=== PATIENT | male | born 1970 | race Caucasian/White ===

== ENCOUNTER 2021-06-17 04:07 | Inpatient (IN) | payer BC ==
[2021-06-17] VITALS (60 sets, daily range): BP systolic 64–123; BP diastolic 31–84
[~2021-06-17] VITALS: Ht 182.9 cm; Wt 98.9 kg
[2021-06-17] MEDS ORDERED: ONDANSETRON HCL/PF 4 MG/2 ML VIAL ONE (04:17)
[2021-06-17] MEDS ORDERED: PANTOPRAZOLE 40 MG VIAL ONE (04:17)
--- NOTE | 2021-06-17 04:20 | NUR ---
PATIENT BIBRA 89 C/O SYNCOPAL EPISODES AT HOME WITH BRIGHT RED GI BLEED. PATIENT IS A/O X 4, RR EVEN AND UNLABORED, NO SOB NOTED. PATIENT CONNECTED TO CARDIAC AND POX MONITOR.
[2021-06-17] MEDS ORDERED: PANTOPRAZOLE 80 MG in IV NS 0.9% 100 ML IV ONE (04:30)
[2021-06-17] MEDS ORDERED: IV NS 0.9% 1,000 ML BAG IV ONE (04:30)
[2021-06-17] MEDS ORDERED: ONDANSETRON HCL/PF 4 MG/2 ML VIAL IVP ONE (04:30)
[2021-06-17 04:33] LABS: BASOPHILS # (AUTO) 0.1 K/uL (0.0-0.2); BASOPHILS % (AUTO) 0.6 % (0.0-2.0); EOSINOPHILS % (AUTO) 0.1 % (0.0-6.0); LYMPHOCYTES # (AUTO) 0.6 K/uL (0.8-4.8); LYMPHOCYTES % (AUTO) 5.5 % (20.0-44.0); MEAN CORPUSCULAR HGB CONC 33 g/dl (31.0-36.0); MEAN CORPUSCULAR VOLUME 109 fL (80-96); MONOCYTES # (AUTO) 1.7 K/uL (0.1-1.30); MONOCYTES % (AUTO) 14.6 % (2.0-12.0); NEUTROPHILS # (AUTO) 9.2 K/uL (1.8-8.9); NEUTROPHILS % (AUTO) 79.2 % (43.0-81.0); PLATELET COUNT (AUTO) 202 K/uL (150-450); WHITE BLOOD COUNT (AUTO) 11.7 K/uL (4.3-11.0)
[2021-06-17 04:36] LABS: RED BLOOD CELL COUNT(AUTO) 1.61 MIL/uL (4.5-6.0)
[2021-06-17 04:37] LABS: HEMOGLOBIN 5.8 g/dL (13.5-17.5)
[2021-06-17 04:38] LABS: HEMATOCRIT 18 % (39-51)
[2021-06-17 04:48] LABS: CALCIUM, SERUM 8.1 mg/dL (8.5-10.1); CREATININE 2.1 mg/dL (0.6-1.3); POTASSIUM 3.9 mmol/L (3.5-5.1)
--- NOTE | 2021-06-17 04:53 | NUR ---
dr castellanos paged per dr mills.
[2021-06-17 04:54] LABS: ALBUMIN 2.2 g/dL (3.4-5.0); BILIRUBIN,DIRECT 2.4 mg/dL (0.0-0.2); BILIRUBIN,TOTAL 3.5 mg/dL (0.2-1.0)
--- NOTE | 2021-06-17 05:23 | NUR ---
PATIENT RETURNED FROM CT
--- NOTE | 2021-06-17 05:46 | NUR ---
REPORT GIVEN TO BROCK MICHAEL
--- NOTE | 2021-06-17 05:54 | NUR ---
PATIENT TRANSFERRED UNDER ACLS
--- NOTE | 2021-06-17 06:00 | NUR ---
RN NOTE PT BROUGHT TO UNIT VIA GURNEY FROM ER. PT IS ON ROOM AIR SHOWING NO S/S OF RESP DISTRESS. BREATHING EVEN AND UNLABORED. PT IS A/XO4. IV ACCESS NOTED ON RIGHT AC #18 AND LEFT FA #20. LINES FLUSHED, PATENT, AND INTACT WITH NO SIGNS OF INFILTRATION. ALL SAFETY MEASURES IMPLEMENTED. CALL LIGHT WITHIN REACH. BED ALARM ON. BED LOCKED AND IN LOWEST POSITION. WILL CONTINUE TO MONITOR AND ASSESS FOR ANY CHANGES AND ENDORSE TO MORNING SHIFT RN FOR ERNESTO.
[2021-06-17 06:36] LABS: LYMPHOCYTES % (MANUAL) 5 % (16-48); METAMYELOCYTES % 1 % (0-0); MONOCYTES % (MANUAL) 11 % (0-11.0); MYELOCYTES % 1 % (0-0); NEUTROPHILS % (MANUAL) 82 (42-76)
--- NOTE | 2021-06-17 06:45 | NUR ---
RN NOTE BLOOD TRANSFUSION INITIATED AT 0630. INITIAL VITAL SIGNS TAKEN. VITAL SIGNS TAKEN AGAIN AT 0645. WILL ENDORSE TO MORNING SHIFT RN FOR ERNESTO.
[2021-06-17] MEDS ORDERED: ZOLPIDEM TARTRATE 5 MG TABLET PO PRN (07:00)
[2021-06-17] MEDS ORDERED: MAGNESIUM HYDROXIDE 30 ML UDC PO PRN (07:00)
[2021-06-17] MEDS ORDERED: Z GUARD REMEDY 2 OZ OINT TP PRN (07:00)
[2021-06-17] MEDS ORDERED: MAG HYDROX/AL HYDROX/SIMETH 30 ML UDC PO PRN (07:00)
--- NOTE | 2021-06-17 07:30 | NUR ---
TD RN AM NOTE PT IN BED, AO X 4, PT IS ON ROOM AIR, NO S/S OF RESP DISTRESS. BREATHING EVEN AND UNLABORED. C/O SLIGHT DIZZINESS, DENIES OTHER PAIN, ACCESS NOTED ON RIGHT AC #18 AND LEFT FA #20. LINES FLUSHED, PATENT, AND INTACT WITH NO SIGNS OF INFILTRATION. ONGOING BLOOD TRANSFUSION TO RIGHT AC. NPO FOR NOW. NO SKIN ISSUES. FOR POSSIBLE EGD TODAY. ALL SAFETY MEASURES IMPLEMENTED. CALL LIGHT WITHIN REACH. BED ALARM ON. BED LOCKED AND IN LOWEST POSITION. WILL CONTINUE TO MONITOR AND ASSESS FOR ANY CHANGES.
[2021-06-17] MEDS ORDERED: CLON0.5T4 PO (08:29)
[2021-06-17] MEDS ORDERED: LISI10TA29 PO (08:29)
[2021-06-17] MEDS ORDERED: ANESTHESIA TRAY IN PYXIS 1 EA TRAY MC ONE (08:30)
[2021-06-17] MEDS: OCTREOTIDE 500 MCG in IV NS 0.9% 99 ML IV PRN (09:05)
[2021-06-17] MEDS: PANTOPRAZOLE 80 MG in IV NS 0.9% 500 ML IV PRN ×2 (09:06→20:01)
[2021-06-17] MEDS: IV NS 0.9% 1,000 ML IV PRN ×3 (09:19→16:29)
--- NOTE | 2021-06-17 09:26 | NUR ---
RN NOTES 1 UNIT PRBC COMPETED. NO ADVERSE REACTION NOTED. PATIENT PICKED UP FOR SCHEDULED EGD.
[2021-06-17] MEDS ORDERED: MIDAZOLAM HCL 2 MG/2ML VIAL ONE (09:37)
--- NOTE | 2021-06-17 09:45 | NUR ---
RN NOTES SANDOSTATIN DRIP AND PROTONIX IV STARTED AT SURGERY DEPT.
--- NOTE | 2021-06-17 10:25 | NUR ---
RN NOTES RECEIVED PT FROM OR , INTUBATED , S/P EGD, PT IS SEDATED , RESPONDS TO PAINFUL STIMULI, ET TUBE CARE DONE, TOLERAING VENT SETTING WELL, O2 SAT WNL, COCHRAN INSERTED PER MD ORDER, TEA COLOR URIN OUTPUT NOTED, IV SITES CLEAN DRY AND INTACT PT ON PROTONIX AND SANDOSTATIN DRIP , PT IS NPO , SR UP x3 , CALL LIGHT WITHIN EASY REACH, CONTINUE TO MONITOR .
--- NOTE | 2021-06-17 10:30 | NUR ---
RN NOTES REPORT GIVEN TO PRISCILLA. PATIENT WILL GO TO ICU 256 POST SURGERY. MEETING PLANNER GIVEN": RIC [SON] [phone]
--- NOTE | 2021-06-17 10:51 | NUR ---
RN NOTES SECOND UNIT OF PRBC STARTED, CONTINUE TO MONITOR VSS .
[2021-06-17] MEDS: PROPOFOL 100 ML IV PRN ×3 (11:41→22:21)
[2021-06-17 12:25] LABS: ABG BASE EXCESS -3.7 mmol/L; ABG PCO2 23.5 mmHg (35.0-45.0); ABG PH 7.515 (7.350-7.450); ABG PO2 139.1 mmHg (75.0-100.0); COHb 0.3 % (0.5-1.5); MetHb 0.7 % (0.0-1.5); O2Hb 97.3 % (94.0-97.0); SITE, ABG Right Radial; VT, ABG 500 mL
[2021-06-17] MEDS: CEFTRIAXONE 1 G in IV D5W 50 ML IV SCH (12:31)
[2021-06-17] MEDS ORDERED: IV NS 0.9% 1,000 ML IV ONE (13:00)
[2021-06-17] MEDS: NOREPINEPHRINE 8 MG in IV NS 0.9% 242 ML IV PRN ×2 (13:18→20:51)
--- NOTE | 2021-06-17 13:18 | NUR ---
RN NOTES PT IS HYPOTENSIVE, DR MANDY DUMONTFED, ORDER RECEIVED FOR BOLUS IVF AND TO START LEVO DRIP. CONTINUE TO MONITOR.
[2021-06-17 14:31] LABS: BASOPHILS # (AUTO) 0.1 K/uL (0.0-0.2); BASOPHILS % (AUTO) 0.8 % (0.0-2.0); EOSINOPHILS % (AUTO) 0.1 % (0.0-6.0); HEMATOCRIT 22 % (39-51); HEMOGLOBIN 7.4 g/dL (13.5-17.5); LYMPHOCYTES # (AUTO) 1.2 K/uL (0.8-4.8); LYMPHOCYTES % (AUTO) 10.7 % (20.0-44.0); MEAN CORPUSCULAR HGB CONC 35 g/dl (31.0-36.0); MEAN CORPUSCULAR VOLUME 98 fL (80-96); MONOCYTES # (AUTO) 1.8 K/uL (0.1-1.30); MONOCYTES % (AUTO) 15.9 % (2.0-12.0); NEUTROPHILS # (AUTO) 8.3 K/uL (1.8-8.9); NEUTROPHILS % (AUTO) 72.5 % (43.0-81.0); PLATELET COUNT (AUTO) 169 K/uL (150-450); RED BLOOD CELL COUNT(AUTO) 2.21 MIL/uL (4.5-6.0); WHITE BLOOD COUNT (AUTO) 11.4 K/uL (4.3-11.0)
[2021-06-17 14:44] LABS: CALCIUM, SERUM 6.7 mg/dL (8.5-10.1); CREATININE 1.8 mg/dL (0.6-1.3); POTASSIUM 3.9 mmol/L (3.5-5.1)
[2021-06-17 15:37] LABS: BAND % (MANUAL) 2 % (0.0-5.0); EOSINOPHILS % (MANUAL) 1 % (0-4); LYMPHOCYTES % (MANUAL) 9 % (16-48); MONOCYTES % (MANUAL) 4 % (0-11.0); NEUTROPHILS % (MANUAL) 84 (42-76)
--- NOTE | 2021-06-17 18:30 | NUR ---
RN NOTES PT REMAINS INTUBATED AND SEDATED, TOLERATING VENT SETTING WELL, O2 SAT WNL, NO ACTIVE BLEEDING NOTED, NS AT 125CC/HR , LEVO AT .3 MCG/KG/ MIN ,PROTONIX 50CC/HR ,AND SANDOSTATIN AT 25MCG /HR RUNNING , SR UP x3, CALL LIGHT WITHIN EASY REACH, BED LOCKED AND IN LOWEST POSITION, WILL ENDOSE TO MANUFACTURING SR ENGINEER NURSE FOR CONTINUITY OF CARE.
--- NOTE | 2021-06-17 19:30 | NUR ---
FEED MANAGER RCD PT WITH AZAR MIDLINE NO MEDICATIONS CONNECTED TO MIDLINE AT THIS TIME. FLUSHED MIDLINE AND MET RESISTANCE. CONNECTED MEDICATIONS TO EACH PORT AND ONLY PORT CAN BE USED AT A TIME.
[2021-06-18] VITALS (65 sets, daily range): BP systolic 93–116; BP diastolic 59–77
[2021-06-18] MEDS: IV NS 0.9% 1,000 ML IV PRN ×3 (00:20→17:23)
[2021-06-18] MEDS: OCTREOTIDE 500 MCG in IV NS 0.9% 99 ML IV PRN ×2 (00:45→19:06)
[2021-06-18] MEDS: PROPOFOL 100 ML IV PRN ×6 (01:45→21:09)
[2021-06-18] MEDS: NOREPINEPHRINE 8 MG in IV NS 0.9% 242 ML IV PRN ×5 (01:45→23:09)
[2021-06-18] MEDS: PANTOPRAZOLE 80 MG in IV NS 0.9% 500 ML IV PRN ×2 (05:06→15:10)
[2021-06-18 05:16] LABS: BASOPHILS # (AUTO) 0.1 K/uL (0.0-0.2); BASOPHILS % (AUTO) 0.4 % (0.0-2.0); EOSINOPHILS % (AUTO) 0.2 % (0.0-6.0); HEMATOCRIT 23 % (39-51); HEMOGLOBIN 8.1 g/dL (13.5-17.5); LYMPHOCYTES # (AUTO) 1.2 K/uL (0.8-4.8); LYMPHOCYTES % (AUTO) 8.1 % (20.0-44.0); MEAN CORPUSCULAR HGB CONC 35 g/dl (31.0-36.0); MEAN CORPUSCULAR VOLUME 99 fL (80-96); MONOCYTES # (AUTO) 2.5 K/uL (0.1-1.30); MONOCYTES % (AUTO) 16.6 % (2.0-12.0); NEUTROPHILS # (AUTO) 11.5 K/uL (1.8-8.9); NEUTROPHILS % (AUTO) 74.7 % (43.0-81.0); PLATELET COUNT (AUTO) 233 K/uL (150-450); RED BLOOD CELL COUNT(AUTO) 2.35 MIL/uL (4.5-6.0); WHITE BLOOD COUNT (AUTO) 15.3 K/uL (4.3-11.0)
[2021-06-18 05:27] LABS: CALCIUM, SERUM 6.4 mg/dL (8.5-10.1); CREATININE 2.3 mg/dL (0.6-1.3); MAGNESIUM 1.7 mg/dL (1.8-2.4); PHOSPHORUS 3.3 mg/dL (2.5-4.9); POTASSIUM 3.4 mmol/L (3.5-5.1)
--- NOTE | 2021-06-18 07:32 | NUR ---
RN NOTE PATIENT IS IN BED WITH HOB AT SEMI FOWLERS POSITION. PATIENT IS ON VENT SATURATING 98%. PATIENT IS SEDATED. COCHRAN CATHETER IS IN PLACE. AZAR MIDLINE, RAC 18, LFA 20 ARE ALL PATENT AND INTACT. BED IS LOCKED IN THE LOWEST POSITION, 3 GUARD RAILS RAISED, CALL LOVETT WITHIN REACH, AND ALL HOSPITAL SAFETY PRECAUTIONS ARE BEING FOLLOWED. WILL CONTINUE TO MONITOR THROUGHOUT SHIFT.
[2021-06-18] MEDS: POTASSIUM CL. PREMIX PERIPHER. 50 ML IV SCH ×4 (08:21→11:22)
[2021-06-18] MEDS: Magnesium 1GM/D5W 100ML PREMIX 100 ML IV SCH ×2 (08:21→09:26)
[2021-06-18 09:54] LABS: BAND % (MANUAL) 2 % (0.0-5.0); LYMPHOCYTES % (MANUAL) 7 % (16-48); METAMYELOCYTES % 1 % (0-0); MONOCYTES % (MANUAL) 7 % (0-11.0); MYELOCYTES % 1 % (0-0); NEUTROPHILS % (MANUAL) 82 (42-76)
[2021-06-18 11:01] LABS: ABG BASE EXCESS -4.6 mmol/L; ABG OXYGEN SATURATION 91.3 % (92.0-98.5); ABG PCO2 27.2 mmHg (35.0-45.0); ABG PH 7.453 (7.350-7.450); ABG PO2 64.1 mmHg (75.0-100.0); AaDO2 117.8 mmHg; COHb 0.3 % (0.5-1.5); MetHb 0.3 % (0.0-1.5); O2Hb 90.8 % (94.0-97.0); PEEP,BG 0 cm H2O; SITE, ABG Right Radial; VT, ABG 500 mL
[2021-06-18] MEDS: CEFTRIAXONE 1 G in IV D5W 50 ML IV SCH (11:22)
[2021-06-18 12:32] LABS: BASOPHILS # (AUTO) 0.1 K/uL (0.0-0.2); BASOPHILS % (AUTO) 0.6 % (0.0-2.0); EOSINOPHILS % (AUTO) 1.6 % (0.0-6.0); HEMATOCRIT 22 % (39-51); HEMOGLOBIN 7.5 g/dL (13.5-17.5); LYMPHOCYTES # (AUTO) 1.2 K/uL (0.8-4.8); LYMPHOCYTES % (AUTO) 9.7 % (20.0-44.0); MEAN CORPUSCULAR HGB CONC 34 g/dl (31.0-36.0); MEAN CORPUSCULAR VOLUME 100 fL (80-96); MONOCYTES # (AUTO) 2.5 K/uL (0.1-1.30); MONOCYTES % (AUTO) 19.5 % (2.0-12.0); NEUTROPHILS # (AUTO) 8.7 K/uL (1.8-8.9); NEUTROPHILS % (AUTO) 68.6 % (43.0-81.0); PLATELET COUNT (AUTO) 221 K/uL (150-450); RED BLOOD CELL COUNT(AUTO) 2.21 MIL/uL (4.5-6.0); WHITE BLOOD COUNT (AUTO) 12.7 K/uL (4.3-11.0)
[2021-06-18 13:13] LABS: BAND % (MANUAL) 3 % (0.0-5.0); EOSINOPHILS % (MANUAL) 2 % (0-4); LYMPHOCYTES % (MANUAL) 5 % (16-48); METAMYELOCYTES % 2 % (0-0); MONOCYTES % (MANUAL) 9 % (0-11.0); MYELOCYTES % 2 % (0-0); NEUTROPHILS % (MANUAL) 77 (42-76)
--- NOTE | 2021-06-18 18:46 | NUR ---
RN NOTE PATIENT IS IN BED WITH HOB AT SEMI FOWLERS POSITION. PATIENT IS ON VENT SATURATING 97%. PATIENT IS SEDATED. COCHRAN CATHETER IS IN PLACE. AZAR MIDLINE, RWRIST 18 X2 , LFA 20 ARE ALL PATENT AND INTACT. BED IS LOCKED IN THE LOWEST POSITION, 3 GUARD RAILS RAISED, CALL LOVETT WITHIN REACH, AND ALL HOSPITAL SAFETY PRECAUTIONS ARE BEING FOLLOWED. ALL DUE MEDS GIVEN AND PATIENT REMAINED STABLE THROUGHOUT SHIFT. WILL ENDORSE TO BOILER OPERATORS SUPERVISOR RN.
[2021-06-19] VITALS (84 sets, daily range): BP systolic 66–143; BP diastolic 41–87
[2021-06-19] MEDS: PANTOPRAZOLE 80 MG in IV NS 0.9% 500 ML IV PRN ×3 (00:42→19:09)
[2021-06-19] MEDS: PROPOFOL 100 ML IV PRN ×6 (01:04→22:58)
[2021-06-19] MEDS: IV NS 0.9% 1,000 ML IV PRN ×4 (01:05→17:32)
[2021-06-19] MEDS: NOREPINEPHRINE 8 MG in IV NS 0.9% 242 ML IV PRN ×4 (04:30→19:11)
--- NOTE | 2021-06-19 05:39 | NUR ---
CAREER DEVELOPMENT COORDINATOR VENT.SETTING REMAINS THE SAME. PT IS SEDATED WITH PROPOFOL DRIP. PT IS ALSO ON LEVOPHED DRIP /FOR HYPOTENSION/, PROTONIX & SANDOSTATIN DRIPS. VSS, AFEBRILE, SCOPE- SR. F/C DRAINS SUFFICIENT AMT. OF CLEAR URINE. PT GOT ONE PASY BROWNISH COLOR STOOL. RIGHT ARM MIDLINE IS CLOGGED. GOT ORDER FOR PICC LINE INSERTION. SOFT WRIST RESTRAINTS ON.
[2021-06-19 05:53] LABS: BASOPHILS % (AUTO) 0.3 % (0.0-2.0); EOSINOPHILS % (AUTO) 0.8 % (0.0-6.0); HEMATOCRIT 22 % (39-51); HEMOGLOBIN 7.5 g/dL (13.5-17.5); LYMPHOCYTES # (AUTO) 0.9 K/uL (0.8-4.8); LYMPHOCYTES % (AUTO) 7.9 % (20.0-44.0); MEAN CORPUSCULAR HGB CONC 34 g/dl (31.0-36.0); MEAN CORPUSCULAR VOLUME 100 fL (80-96); MONOCYTES # (AUTO) 2.5 K/uL (0.1-1.30); MONOCYTES % (AUTO) 22.5 % (2.0-12.0); NEUTROPHILS # (AUTO) 7.7 K/uL (1.8-8.9); NEUTROPHILS % (AUTO) 68.5 % (43.0-81.0); PLATELET COUNT (AUTO) 197 K/uL (150-450); RED BLOOD CELL COUNT(AUTO) 2.18 MIL/uL (4.5-6.0); WHITE BLOOD COUNT (AUTO) 11.3 K/uL (4.3-11.0)
[2021-06-19 06:07] LABS: CALCIUM, SERUM 6.6 mg/dL (8.5-10.1); CREATININE 1.2 mg/dL (0.6-1.3); MAGNESIUM 2.1 mg/dL (1.8-2.4); PHOSPHORUS 2.5 mg/dL (2.5-4.9); POTASSIUM 3.5 mmol/L (3.5-5.1)
--- NOTE | 2021-06-19 07:20 | NUR ---
RN OPENING NOTES; RECEIVED PT IN SUPINE POS. PT ON MECH VENT, WITH SETTING ORDERED. PT IS SEDATED, MULTIPLE DRIPS NOTED. RUNNING, PATENT. PT HAS A NEW ORDER FOR PICC LINE. VS WNL, NO SOB NOTED, NO EVIDENCE OF DISTRESS. PT KEPT CLEAN, DRY, AND COMFORTABLE. SAFETY MEASURES RENDERED, BED IN LOWEST POS. LOCK, WITH CALL LIGHT WITHIN REACH. WILL CONTINUE TO MONITOR.
[2021-06-19 10:38] LABS: EOSINOPHILS % (MANUAL) 2 % (0-4); LYMPHOCYTES % (MANUAL) 9 % (16-48); MONOCYTES % (MANUAL) 19 % (0-11.0); NEUTROPHILS % (MANUAL) 70 (42-76)
[2021-06-19] MEDS: OCTREOTIDE 500 MCG in IV NS 0.9% 99 ML IV PRN (11:06)
[2021-06-19] MEDS: CEFTRIAXONE 1 G in IV D5W 50 ML IV SCH (11:27)
--- NOTE | 2021-06-19 18:37 | NUR ---
RN NOTES; PT IN BED, IN SUPINE POS. PT ON MECH VENT, WITH SETTINGS ORDERED. PT HAS NO SOB NOTED, AND NO DISTRESS EVIDENCE BY FACIAL EXPRESSION. ALL MEDS GIVEN AND WELL TOLERATED. ENJOYED VISIT WITH FAMILY. UPDATED FAMILY REGARDING PT HEALTH STATUS. FAMILY WOULD LIKE TO SPEAK TO MD REGARDING PT HEALTH STATUS AND PLANS. NO SIGNIFICANT CHANGES TO PT HEALTH STATUS. PT KEPT CLEAN, DRY AND COMFORTABLE. ENDORSE TO COMPUTER APPLICATIONS ENGINEER IN STABLE CONDITION.
[2021-06-20] VITALS (64 sets, daily range): BP systolic 85–131; BP diastolic 51–79
--- NOTE | 2021-06-20 | NUR ---
agricultural inspector received the pt rest on the bed. orally intubated. sedated with propofol 50mcg/kg/min, protonix 50 ml/h, sandostatin 25mcg, levophed 0.1 mcg/kg/min, ivf ns 100ml/h. pt is npo. fc patent. urine draining. will continue to monitor vitals.
[2021-06-20] MEDS: OCTREOTIDE 500 MCG in IV NS 0.9% 99 ML IV PRN ×2 (01:59→21:31)
[2021-06-20] MEDS: NOREPINEPHRINE 8 MG in IV NS 0.9% 242 ML IV PRN (02:01)
[2021-06-20] MEDS: PROPOFOL 100 ML IV PRN ×2 (03:15→07:26)
[2021-06-20] MEDS ORDERED: PANTOPRAZOLE 40 MG VIAL ONE (03:19)
[2021-06-20] MEDS: IV NS 0.9% 1,000 ML IV PRN ×2 (03:20→14:48)
[2021-06-20] MEDS: PANTOPRAZOLE 80 MG in IV NS 0.9% 500 ML IV PRN ×3 (03:23→21:29)
[2021-06-20 04:37] LABS: BASOPHILS # (AUTO) 0.1 K/uL (0.0-0.2); EOSINOPHILS % (AUTO) 1.3 % (0.0-6.0); LYMPHOCYTES # (AUTO) 0.8 K/uL (0.8-4.8); LYMPHOCYTES % (AUTO) 9.6 % (20.0-44.0); MEAN CORPUSCULAR HGB CONC 35 g/dl (31.0-36.0); MEAN CORPUSCULAR VOLUME 102 fL (80-96); MONOCYTES # (AUTO) 2.1 K/uL (0.1-1.30); MONOCYTES % (AUTO) 24.4 % (2.0-12.0); NEUTROPHILS # (AUTO) 5.4 K/uL (1.8-8.9); NEUTROPHILS % (AUTO) 63.7 % (43.0-81.0); PLATELET COUNT (AUTO) 207 K/uL (150-450); WHITE BLOOD COUNT (AUTO) 8.4 K/uL (4.3-11.0)
[2021-06-20 04:43] LABS: CALCIUM, SERUM 6.4 mg/dL (8.5-10.1); MAGNESIUM 2.2 mg/dL (1.8-2.4); PHOSPHORUS 2.3 mg/dL (2.5-4.9); POTASSIUM 3.6 mmol/L (3.5-5.1)
[2021-06-20 05:45] LABS: HEMATOCRIT 20 % (39-51); RED BLOOD CELL COUNT(AUTO) 1.95 MIL/uL (4.5-6.0)
[2021-06-20 05:46] LABS: HEMOGLOBIN 6.9 g/dL (13.5-17.5)
--- NOTE | 2021-06-20 07:00 | NUR ---
RN NOTES RECEIVED PT ON BED INTUBATED AND SEDATED , TOLERAING VENT SETTING WELL, O2 SAT WNL, ETT CARE DONE, PT ON PROTONIX , SANDOSTATIN , LEVO AND PROPOFOL DRIP , ON TELE SR HR IN 70'S , COCHRAN DRAINING TO GRAVITY, IV SITES CLEAN DRY AND INTACT, SR UP x3, CALL LIGHT WITHIN EASY REACH, BED LOCKED AND IN LOWEST POSITION, CONTINUE TO MONITOR .
[2021-06-20 07:03] LABS: BAND % (MANUAL) 5 % (0.0-5.0); EOSINOPHILS % (MANUAL) 3 % (0-4); LYMPHOCYTES % (MANUAL) 6 % (16-48); MONOCYTES % (MANUAL) 16 % (0-11.0); NEUTROPHILS % (MANUAL) 70 (42-76)
--- NOTE | 2021-06-20 07:26 | NUR ---
agricultural consultant. hemoglobin 6.9 notified md sharpe 1 unit prbc ordered.
--- NOTE | 2021-06-20 11:00 | NUR ---
RN NOTES PT ON CPAP MODE, TOLERAING WELL , OPENS EYES TO VERBAL STIMULI, FOLLOWS SIMPLE COMMAND, CONTINUE TO MONITOR .
[2021-06-20] MEDS: CEFTRIAXONE 1 G in IV D5W 50 ML IV SCH (11:33)
[2021-06-20] MEDS: POTASSIUM PHOSPHATE MM 7.5 MMOL in IV NS 0.9% 100 ML IV SCH ×2 (11:58→14:38)
--- NOTE | 2021-06-20 14:00 | NUR ---
RN NOTES ONE UNIT OF PRBC INFUSED , PT TOLERATED WELL, NO REACTION NOTED, CONTINUE TO MONITOR
--- NOTE | 2021-06-20 17:52 | NUR ---
RN NOTES PT REMAINS ON CPAP MODE , NO DISTRESS NOTED, O2 SAT WNL, FOLY DRAINING TO GRAVITY, PT ON PROTONIX AND SANDOSTATIN DRIP, IVF AT 100CC/ HR RUNNING , WILL ENDORSE TO FOOTWEAR SALES COORDINATOR NURSE FOR CONTINUITY OF CARE.
--- NOTE | 2021-06-20 19:35 | NUR ---
RN NOTE PT RECEIVED IN BED. PT IS IN CPAP MODE. TOLERATING VENT SETTINGS WELL WITH OXYGEN SATURATION >97%. PT IS SEDATED. NSR ON MONITOR. COCHRAN CATH NOTED DRAINING YANICK COLORED URINE. SKIN INTACT. RESTRAINTS NOTED. CURRENTLY NPO. IV LINES FLUSHED, PATENT, AND INTACT WITH NO SIGNS/SYMPTOMS OF INFILTRATION. 0.9% NS RUNNING AT 100 ML/HR. ALL SAFETY MEASURES IMPLEMENTED. BED ALARM ON. BED LOCKED AND IN LOWEST POSITION. SIDE RAILS UP. WILL CONTINUE TO MONITOR AND ASSESS FOR ANY CHANGES DURING SHIFT.
[2021-06-21] VITALS (37 sets, daily range): BP systolic 100–131; BP diastolic 46–95
[2021-06-21] MEDS: IV NS 0.9% 1,000 ML IV PRN ×2 (00:43→09:48)
[2021-06-21 04:40] LABS: BASOPHILS # (AUTO) 0.1 K/uL (0.0-0.2); BASOPHILS % (AUTO) 1.2 % (0.0-2.0); EOSINOPHILS % (AUTO) 1.3 % (0.0-6.0); HEMATOCRIT 25 % (39-51); HEMOGLOBIN 8.5 g/dL (13.5-17.5); LYMPHOCYTES # (AUTO) 0.5 K/uL (0.8-4.8); LYMPHOCYTES % (AUTO) 7.6 % (20.0-44.0); MEAN CORPUSCULAR HGB CONC 34 g/dl (31.0-36.0); MEAN CORPUSCULAR VOLUME 99 fL (80-96); MONOCYTES # (AUTO) 1.3 K/uL (0.1-1.30); NEUTROPHILS # (AUTO) 4.9 K/uL (1.8-8.9); NEUTROPHILS % (AUTO) 70.9 % (43.0-81.0); PLATELET COUNT (AUTO) 166 K/uL (150-450); RED BLOOD CELL COUNT(AUTO) 2.52 MIL/uL (4.5-6.0); WHITE BLOOD COUNT (AUTO) 6.9 K/uL (4.3-11.0)
[2021-06-21 05:08] LABS: CALCIUM, SERUM 6.9 mg/dL (8.5-10.1); CREATININE 0.8 mg/dL (0.6-1.3); POTASSIUM 3.4 mmol/L (3.5-5.1)
[2021-06-21 06:26] LABS: BAND % (MANUAL) 4 % (0.0-5.0); EOSINOPHILS % (MANUAL) 3 % (0-4); LYMPHOCYTES % (MANUAL) 6 % (16-48); MONOCYTES % (MANUAL) 18 % (0-11.0); NEUTROPHILS % (MANUAL) 69 (42-76)
--- NOTE | 2021-06-21 06:44 | NUR ---
RN NOTE NO CHANGES IN PT CONDITION DURING SHIFT. PT IS IN CPAP MODE. TOLERATING VENT SETTINGS WELL WITH OXYGEN SATURATION >97%. PT IS STILL SEDATED, BUT ABLE TO ANSWER QUESTIONS BY NODDING HEAD. NSR ON MONITOR. COCHRAN CATH NOTED DRAINING YANICK COLORED URINE. IV LINES FLUSHED, PATENT, AND INTACT. 0.9% NS RUNNING AT 100 ML/HR. ALL DUE MEDS GIVEN ORDERED. PT KEPT CLEAN AND COMFORTABLE. ALL SAFETY MEASURES IMPLEMENTED. BED ALARM ON. BED LOCKED AND IN LOWEST POSITION. SIDE RAILS UP. WILL ENDORSE TO MORNING SHIFT RN FOR ERNESTO.
--- NOTE | 2021-06-21 07:00 | NUR ---
RN NOTES RECEIVED PT ON BED INTUBATED, ALERT , FOLLOWS SIMPLE COMMAND, ON CPAP MODE, TOLERAING VENT SETTING WELL, O2 SAT WNL, ETT CARE DONE, PT ON PROTONIX , SANDOSTATIN DRIP, ON TELE SR HR IN 70'S , COCHRAN DRAINING TO GRAVITY, IV SITES CLEAN DRY AND INTACT, SR UP x3, CALL LIGHT WITHIN EASY REACH, BED LOCKED AND IN LOWEST POSITION, CONTINUE TO MONITOR .
[2021-06-21] MEDS: PANTOPRAZOLE 80 MG in IV NS 0.9% 500 ML IV PRN (07:32)
[2021-06-21] MEDS ORDERED: DC PROPOFOL WHEN EXTUBATED XX PRN (09:00)
--- NOTE | 2021-06-21 09:30 | NUR ---
RN NOTES PT EXTUBATED BY MD ORDER , PLACED ON 3L O2 N/C , VSS STABLE AT THIS TIME, CONTINUE TO MONITOR .
--- NOTE | 2021-06-21 09:30 | NUR ---
RT PATIENT EXTUBATED PER DR BREWER. PLACED ON SD LINDSEY HYDE. NO SOB NOTED Addendum: 06/21/21 at 1226 by SHU PRADHAN RT Amended: Links added.
[2021-06-21] MEDS: POTASSIUM CL. PREMIX PERIPHER. 50 ML IV SCH ×3 (09:46→12:16)
--- NOTE | 2021-06-21 12:00 | NUR ---
RN NOTES FAMILY AT THE BEDSIDE, PT TOLERATING 3L O2 N/C , O2 SAT WNL, CONTINUE TO MONITOR.
[2021-06-21] MEDS: CEFTRIAXONE 1 G in IV D5W 50 ML IV SCH (12:16)
[2021-06-21] MEDS: POTASSIUM PHOSPHATE MM 7.5 MMOL in IV NS 0.9% 100 ML IV SCH ×2 (15:20→18:07)
--- NOTE | 2021-06-21 18:00 | NUR ---
RN NOTES VSS STABLE, PT IS A/Ox3-4, ON 3L O2 N/C , O2 SAT WNL, ON TELE SR HR IN 70'S, NS AT 100CC/HR RUNNING , NO SIGNIFICANT CHANGES NOTED , WILL ENDORSE TO PEDIATRIC GENETIC COUNSELOR NURSE FOR CONTINUITY OF CARE .
--- NOTE | 2021-06-21 19:05 | NUR ---
RECEIVED PT ON BED AWAKE, ON O2 2L VIA NC NO SIGN OF RESPIRATORY DISTRESS SPO2 97 % PT IS AA/O X3 BUT A LITTLE WEAK, TELE MONITOR READS SINUS RHYTHM 80'S HAVE DEON PICC PATENT AND FLUSHED COCHRAN CATHETER DRAINING DARK YELLOW URINE, ABDOMINAL DISTENTION STILL NOTED, BED ON LOWEST POSITION AND LOCKED SIDE RAILS UP X2 CALL LIGHT WITHIN REACH WILL CONT TO MONITOR
[2021-06-22] VITALS (35 sets, daily range): BP systolic 95–138; BP diastolic 56–90
[2021-06-22 04:36] LABS: BASOPHILS # (AUTO) 0.1 K/uL (0.0-0.2); BASOPHILS % (AUTO) 0.9 % (0.0-2.0); HEMATOCRIT 27 % (39-51); HEMOGLOBIN 9.3 g/dL (13.5-17.5); LYMPHOCYTES # (AUTO) 0.9 K/uL (0.8-4.8); LYMPHOCYTES % (AUTO) 8.1 % (20.0-44.0); MEAN CORPUSCULAR HGB CONC 34 g/dl (31.0-36.0); MEAN CORPUSCULAR VOLUME 90 fL (80-96); MONOCYTES % (AUTO) 8.5 % (2.0-12.0); NEUTROPHILS # (AUTO) 9.2 K/uL (1.8-8.9); NEUTROPHILS % (AUTO) 79.5 % (43.0-81.0); PLATELET COUNT (AUTO) 187 K/uL (150-450); RED BLOOD CELL COUNT(AUTO) 3.03 MIL/uL (4.5-6.0); WHITE BLOOD COUNT (AUTO) 11.6 K/uL (4.3-11.0)
[2021-06-22 04:46] LABS: CALCIUM, SERUM 8.4 mg/dL (8.5-10.1); CREATININE 0.9 mg/dL (0.6-1.3)
--- NOTE | 2021-06-22 06:44 | NUR ---
PT ON BED ASLEEP EASY TO WAKE UP STILL ON O2 3L VIA NC SPO2 99% NO SIGN OF RESPIRATORY DISTRESS, NO PAIN COMPLAINT, TELE MONITOR READS SINUS RHYTHM 80'S, NO SIGNIFICANT CHNAGES ON CONDITION NOTED, ALL NEEDS ATTENDED, COCHRAN CATHETER STILL DRAINING TEA COLORED URINE VIA GRAVITY 250ML, BED ON LWOEST POSITION AND LOCKED SIDE RAILS UP X2 CALL LIGHT WITHIN REACH WILL CONT TO MONITOR
--- NOTE | 2021-06-22 07:30 | NUR ---
FLOUR WORKER OPENING NOTES Patient received in bed on via n/c, o2 sat of 98%. No c/o pain or discomfort. Patient's singh cath hanging to gravity. AZAR MIDLINE AND DEON PICC LINE NOTED ALONG WITH PERIPHERAL IV TO LFA AND RIGHT FA. Will continue to monitor. Call light with in reach.
[2021-06-22] MEDS ORDERED: GABAPENTIN 100 MG CAPSULE PO SCH (11:00)
[2021-06-22] MEDS: POTASSIUM CL. PREMIX PERIPHER. 50 ML IV SCH ×6 (11:26→17:06)
--- NOTE | 2021-06-22 12:00 | NUR ---
MD Diaz made aware that patient's is rrequesting a phone call. aware.
[2021-06-22] MEDS: CEFTRIAXONE 1 G in IV D5W 50 ML IV SCH (12:26)
--- NOTE | 2021-06-22 14:20 | NUR ---
Patient noted with left hip excoriation. No active bleeding. MD aware and wound care consulted and picture placed in chart.
--- NOTE | 2021-06-22 16:50 | NUR ---
Patient's called to speak to MD. Informed that MD is aware and will call. Electrical Prospecting Engineer informed MD Diaz second time that family is requesting a call . MD aware and provided with phone number.
--- NOTE | 2021-06-22 17:50 | NUR ---
CAREER SERVICES OFFICER NOTES RECEIVED PATIENT FROM ICU ENDORSED BY NURSE DICKEY. ON ROOM AIR TOLERATING WELL. NO SOB NOTED. NOT IN DISTRESS. WITH NO COMPLAINTS OF PAIN AT THIS TIME. WITH IV ACCESS AT RIGHT UPPER ARM MIDLINE AND AT LEFT UPPER ARM PICC LINE, BOTH SALINE LOCKED, PATENT AND INTACT. MADE COMFORTABLE ON BED. VITAL SIGNS CHECKED- STABLE. SAFETY MEASURES IN PLACED, CALL LIGHT WITHIN REACH. BED ON LOWEST AND LOCKED POSITION, SIDE RAILS UP X2. WILL CONTINUE TO MONITOR.
--- NOTE | 2021-06-22 18:04 | NUR ---
PATIENT TRANSFERRED TO ROOM 326-1 AND REPORT GIVEN TO [facility]. PATIENT HAD TWO BM'S ON DRYING MACHINE RECEIVER'S SHIFT AND URINE OUTPUT OF 400 CC. PATIENT WAS IN STABLE CONDITION DURING TRANSFER. ENDORSEMENT DONE TO FOLLOW UP WITH FAMILY REQUEST TO SPEAK TO .
--- NOTE | 2021-06-22 18:19 | NUR ---
PATIENT GIVEN 60 MEQ OF K+ IV PRIOR TO TRANSFER
--- NOTE | 2021-06-22 18:55 | NUR ---
SERVER SUPPORT TECHNICIAN NOTES PATIENT RESTING ON BED AND A/O X3. ON ROOM AIR TOLERATING WELL. NO SOB NOTED. NOT IN DISTRESS. WITH NO COMPLAINTS OF PAIN AT THIS TIME. WITH IV ACCESS AT RIGHT UPPER ARM MIDLINE AND AT LEFT UPPER ARM PICC LINE, BOTH SALINE LOCKED, PATENT AND INTACT. MADE COMFORTABLE ON BED. VITAL SIGNS CHECKED- STABLE. SAFETY MEASURES IN PLACED, CALL LIGHT WITHIN REACH. BED ON LOWEST AND LOCKED POSITION, SIDE RAILS UP X2. WILL ENDORSE TO NEXT SHIFT FOR ERNESTO.
--- NOTE | 2021-06-22 19:20 | NUR ---
CARPET INSPECTOR FINISHED OPENING NOTES: RECEIVED PT IN BED, AWAKE, A/O X4. NO S/S OF DISTRESS NOTED. NO COMPLAIN OF PAIN. CALL LIGHT WITHIN REACH. BED IN LOWEST AND LOCKED POSITION.BED ALARM ON. HOB ELEVATED AT ALL TIMES. ON ROOM AIR. FAMILY MEMBERS AT THE BEDSIDE. WITH COCHRAN CATHETER INTACT DRAINING YANICK COLOR OUTPUT. WITH DISTENDED ABDOMEN,SOFT. HEELS OFFLOADED.
[2021-06-23] VITALS (9 sets, daily range): BP systolic 123–133; BP diastolic 72–99
[2021-06-23 06:48] LABS: BASOPHILS # (AUTO) 0.1 K/uL (0.0-0.2); BASOPHILS % (AUTO) 0.9 % (0.0-2.0); EOSINOPHILS % (AUTO) 1.5 % (0.0-6.0); HEMATOCRIT 26 % (39-51); HEMOGLOBIN 9.2 g/dL (13.5-17.5); LYMPHOCYTES # (AUTO) 0.6 K/uL (0.8-4.8); LYMPHOCYTES % (AUTO) 8.8 % (20.0-44.0); MEAN CORPUSCULAR HGB CONC 35 g/dl (31.0-36.0); MEAN CORPUSCULAR VOLUME 99 fL (80-96); MONOCYTES # (AUTO) 1.1 K/uL (0.1-1.30); MONOCYTES % (AUTO) 14.9 % (2.0-12.0); NEUTROPHILS # (AUTO) 5.4 K/uL (1.8-8.9); NEUTROPHILS % (AUTO) 73.9 % (43.0-81.0); PLATELET COUNT (AUTO) 227 K/uL (150-450); RED BLOOD CELL COUNT(AUTO) 2.67 MIL/uL (4.5-6.0); WHITE BLOOD COUNT (AUTO) 7.2 K/uL (4.3-11.0)
[2021-06-23 07:25] LABS: CREATININE 0.7 mg/dL (0.6-1.3); POTASSIUM 3.8 mmol/L (3.5-5.1)
--- NOTE | 2021-06-23 07:40 | NUR ---
WHITE SIDEWALL TIRE BUFFER OPENING NOTES PATIENT IS ASLEEP IN BED, EASY TO AROUSE. ALERT AND ORIENTED X4. NO SOB. NO S/SX OF DISTRESS NOTED. BREATHING IS EVEN AND UNLABORED. PT ON ROOM AIR, TOLERATING WELL. IV ACCESS AZAR MIDLINE AND DEON PICC LINE PATENT AND INTACT. PT WITH EXTERNAL ALIGNMENT TECHNICIAN WITH SINUS RHYTHM IN 90'S. SAFETY MEASURES IN PLACE WITH BED LOCKED AT LOW POSITION AND SIDE RAILS UP X2. CALL LIGHT IS WITHIN REACH. WILL CONTINUE TO MONITOR THROUGHOUT SHIFT.
--- NOTE | 2021-06-23 07:41 | NUR ---
WOUND CARE CONSULT: PT PRESENTS WITH LEFT THIGH SKIN TEAR AND GENERALIZED PITTING EDEMA WITH JAUNDICED SKIN. RECOMMENDATIONS MADE FOR SKIN PROTECTION AND WOUND CARE. DISCUSSED WITH NURSING STAFF. MD IN AGREEMENT WITH PLAN OF CARE.
[2021-06-23] MEDS: ACETAMINOPHEN 325 MG TABLET PO PRN (12:11)
[2021-06-23] MEDS: CEFTRIAXONE 1 G in IV D5W 50 ML IV SCH (12:25)
--- NOTE | 2021-06-23 19:03 | NUR ---
RAPIER INSERTION LOOM FIXER CLOSING NOTES PATIENT IS ASLEEP IN BED, EASY TO AROUSE. FAMILY IS PRESENT AT BEDSIDE AT THIS TIME. NO S/SX OF DISTRESS NOTED. BREATHING IS EVEN AND UNLABORED. IV ACCESS AZAR MIDLINE AND DEON PICC LINE PATENT AND INTACT. PT WITH EXTERNAL GROUNDS CREW SUPERVISOR WITH SINUS RHYTHM IN 90'S. SAFETY MEASURES MAINTAINED. ALL NEEDS MET THROUGHOUT SHIFT. KEPT COMFORTABLE AND DRY. WILL ENDORSE CONTINUITY OF CARE TO ONCOMING SHIFT.
[2021-06-24 00:08] VITALS: BP 132/83
[2021-06-24 05:06] VITALS: BP 115/69
--- NOTE | 2021-06-24 07:30 | NUR ---
NURSE EDUCATOR OPENING NOTES RECEIVED PATIENT AWAKE IN BED. ALERT AND ORIENTED X4. NO SOB. NO S/SX OF DISTRESS NOTED. BREATHING IS EVEN AND UNLABORED. PT ON ROOM AIR, TOLERATING WELL. IV ACCESS AZAR MIDLINE AND DEON PICC LINE PATENT AND INTACT. PT WITH EXTERNAL GERIATRIC NURSE PRACTITIONER WITH SINUS RHYTHM =96. SAFETY MEASURES IN PLACE WITH BED LOCKED AT LOW POSITION AND SIDE RAILS UP X2. CALL LIGHT AND TABLE WITHIN REACH. WILL CONTINUE TO MONITOR .
[2021-06-24 08:00] VITALS: BP 120/78
[2021-06-24 08:03] LABS: BASOPHILS # (AUTO) 0.1 K/uL (0.0-0.2); BASOPHILS % (AUTO) 1.1 % (0.0-2.0); EOSINOPHILS % (AUTO) 1.7 % (0.0-6.0); HEMATOCRIT 25 % (39-51); HEMOGLOBIN 8.5 g/dL (13.5-17.5); LYMPHOCYTES # (AUTO) 0.8 K/uL (0.8-4.8); LYMPHOCYTES % (AUTO) 11.4 % (20.0-44.0); MEAN CORPUSCULAR HGB CONC 33 g/dl (31.0-36.0); MEAN CORPUSCULAR VOLUME 100 fL (80-96); MONOCYTES # (AUTO) 1.2 K/uL (0.1-1.30); MONOCYTES % (AUTO) 16.2 % (2.0-12.0); NEUTROPHILS % (AUTO) 69.6 % (43.0-81.0); PLATELET COUNT (AUTO) 218 K/uL (150-450); RED BLOOD CELL COUNT(AUTO) 2.53 MIL/uL (4.5-6.0); WHITE BLOOD COUNT (AUTO) 7.2 K/uL (4.3-11.0)
[2021-06-24 08:38] LABS: CREATININE 0.7 mg/dL (0.6-1.3); POTASSIUM 3.7 mmol/L (3.5-5.1)
[2021-06-24 10:30] LABS: EOSINOPHILS % (MANUAL) 1 % (0-4); LYMPHOCYTES % (MANUAL) 10 % (16-48); MONOCYTES % (MANUAL) 14 % (0-11.0); NEUTROPHILS % (MANUAL) 75 (42-76)
[2021-06-24] MEDS: CEFTRIAXONE 1 G in IV D5W 50 ML IV SCH (11:57)
[2021-06-24] MEDS: ACETAMINOPHEN 325 MG TABLET PO PRN (18:23)
--- NOTE | 2021-06-24 18:30 | NUR ---
DIRECTOR VOLUNTEER SERVICES CLOSING NOTES PATIENT AWAKE IN BED. ALERT AND ORIENTED X4. NO SOB. NO S/SX OF DISTRESS NOTED. BREATHING IS EVEN AND UNLABORED. PT ON ROOM AIR, TOLERATING WELL. IV ACCESS AZAR MIDLINE AND DEON PICC LINE PATENT AND INTACT. PT WITH EXTERNAL ASSEMBLER GARMENT FORM WITH ST =115. DUE MEDS AND TREATMENTS GIVEN ORDERED. SAFETY MEASURES IN PLACE WITH BED LOCKED AT LOW POSITION AND SIDE RAILS UP X2. CALL LIGHT AND TABLE WITHIN REACH. WILL ENDORSE NEXT SHIFT FOR ERNESTO. .
--- NOTE | 2021-06-24 19:36 | NUR ---
PURE PAK MACHINE OPERATOR OPENING NOTES PATIENT WAS SEEN AWAKE RESTING IN BED. PATIENT'S ALERT AND ORIENTED X4. PATIENT'S STABLE ON ROOM AIR. AZAR MIDLINE AND DEON PICC LINE NOTED, WHICH ARE BOTH INTACT, PATENT, AND FLUSHING WELL. PATIENT'S CONNECTED TO A TELE MONITOR WITH NO CARDIAC DISTRESS NOTED. PATIENT'S IN NO ACUTE DISTRESS AT THIS TIME. SAFETY MEASURES IN PLACE: BED LOCKED, BED ALARM ON, S/R UP X2, AND CALL LIGHT WITHIN REACH OF THE PATIENT. WILL CONTINUE TO MONITOR THE PATIENT.
[2021-06-24 20:00] VITALS: BP 110/69
[2021-06-25 06:43] LABS: BASOPHILS # (AUTO) 0.1 K/uL (0.0-0.2); BASOPHILS % (AUTO) 0.9 % (0.0-2.0); EOSINOPHILS % (AUTO) 1.9 % (0.0-6.0); HEMATOCRIT 27 % (39-51); LYMPHOCYTES # (AUTO) 0.8 K/uL (0.8-4.8); LYMPHOCYTES % (AUTO) 11.9 % (20.0-44.0); MEAN CORPUSCULAR HGB CONC 34 g/dl (31.0-36.0); MEAN CORPUSCULAR VOLUME 101 fL (80-96); MONOCYTES # (AUTO) 1.1 K/uL (0.1-1.30); MONOCYTES % (AUTO) 16.2 % (2.0-12.0); NEUTROPHILS # (AUTO) 4.5 K/uL (1.8-8.9); NEUTROPHILS % (AUTO) 69.1 % (43.0-81.0); PLATELET COUNT (AUTO) 207 K/uL (150-450); RED BLOOD CELL COUNT(AUTO) 2.66 MIL/uL (4.5-6.0); WHITE BLOOD COUNT (AUTO) 6.5 K/uL (4.3-11.0)
[2021-06-25 06:49] LABS: CALCIUM, SERUM 8.7 mg/dL (8.5-10.1); CREATININE 0.7 mg/dL (0.6-1.3); POTASSIUM 3.6 mmol/L (3.5-5.1)
--- NOTE | 2021-06-25 07:57 | NUR ---
POLICE CADET CLOSING NOTES PATIENT WAS SEEN AWAKE RESTING IN BED. PATIENT'S ALERT AND ORIENTED X4. PATIENT'S STABLE ON ROOM AIR. AZAR MIDLINE AND DEON PICC LINE NOTED, WHICH ARE BOTH INTACT, PATENT, AND FLUSHING WELL. PATIENT'S CONNECTED TO A TELE MONITOR WITH NO CARDIAC DISTRESS NOTED. PATIENT'S IN NO ACUTE DISTRESS AT THIS TIME. SAFETY MEASURES IN PLACE: BED LOCKED, BED ALARM ON, S/R UP X2, AND CALL LIGHT WITHIN REACH OF THE PATIENT. ENDORSED CARE TO THE DAY SHIFT NURSE.
[2021-06-25 08:00] VITALS: BP 127/73
[2021-06-25] MEDS: ONDANSETRON HCL/PF 4 MG/2 ML VIAL IVP PRN (13:27)
--- NOTE | 2021-06-25 15:36 | NUR ---
RN OPENING NOTES PATIENT AWAKE IN BED RESTING. A/O X4. NO S/S OF PAIN NOTED AT THIS TIME. ON ROOM AIR, NO DISTRESS OR SHORTNESS OF BREATH NOTED, BREATHING EVEN/UNLABORED. IV AZAR MIDLINE AND DEON PICC LINE, INTACT AND PATENT. PATIENT WITH EXTERNAL PLANT CYTOLOGIST WITH CURRENT READING OF S.R. NO CARDIAC DISTRESS NOTED. FALL AND SAFETY MEASURES IN PLACE, BED ALARM ON, BED IN LOW AND LOCK POSITION, CALL LIGHT AND TABLE WITHIN EASY REACH, SIDE RAILS UP X2. WILL CONTINUE TO MONITOR.
[2021-06-25 16:00] VITALS: BP 127/88
--- NOTE | 2021-06-25 19:00 | NUR ---
HARNESS RIGGER OPENING NOTE RECEIVED PT IN BED, A/O X 3-4. AWAKE AND RESTING. PT'S FAMILY PRESENT. EXTERNAL FINANCE VICE PRESIDENT ST @ 114, NO SOB OR RESPIRATORY DISTRESS NOTED, NO C/O PAIN AT THIS TIME. RESPIRATIONS EVEN AND UNLABORED. IV ACCESS NOTED IN RIGHT UPPER ARM MIDLINE AND LEFT UPPER ARM PICC LINE.FALL AND SAFETY MEASURES IN PLACE AND MAINTAINED AT ALL TIMES. BED ALARM, BED IN LOW AND LOCKED POSITION, HOB ELEVATED TO SEMI FOWLERS POSITION, CALL LIGHT AND TABLE WITHIN REACH. SIDE RAILS UP X2. WILL CONTINUE WITH PLAN OF CARE.
--- NOTE | 2021-06-25 19:08 | NUR ---
RN CLOSING NOTE PATIENT AWAKE IN BED RESTING. A/O X4. NO S/S OF PAIN NOTED AT THIS TIME. ON ROOM AIR, NO DISTRESS OR SHORTNESS OF BREATH NOTED, BREATHING EVEN/UNLABORED. IV AZAR MIDLINE AND DEON PICC LINE, INTACT AND PATENT. COCHRAN NOTED WITH DARK YELLOW URINE OUTPUT OF 140ML. PATIENT WITH EXTERNAL JOURNAL ENTRY AUDIT CLERK WITH CURRENT READING OF SR-ST, HR 120. NO CARDIAC DISTRESS NOTED. FALL AND SAFETY MEASURES IN PLACE, BED ALARM ON, BED IN LOW AND LOCK POSITION, CALL LIGHT AND TABLE WITHIN EASY REACH, SIDE RAILS UP X2. WILL ENDORSE TO INVENTORY MANAGER NURSE.
[2021-06-25 20:00] VITALS: BP 102/71
--- NOTE | 2021-06-25 23:10 | NUR ---
PT CALLED AND CLAIMED THAT THE REPORTED TO HER THAT WHILE PERFORMING CARE ON THE , HIS RIBS GOT BROKEN. REPORTED TO THE CHARGE NURSE, BRYSON. CHARGE NURSE ASKED THE PT IF THAT WAS TRUE JUST TO CONFIRM WHAT THE HAD SAID BUT THE PT STATED THAT "HE DID NOT HURT HIS RIBS, AND THAT IF HE DID HE WOULD BE SCREAMING", PT CALLED THE TO LET HER KNOW TAT HE DID NOT HURT HIS RIBS IN ANYWAY.
[2021-06-26] MEDS ORDERED: BENZONATATE 100 MG CAPSULE PO PRN (00:30)
--- NOTE | 2021-06-26 06:39 | NUR ---
RN NOTE-EMESIS PT COMPLAINED OF NAUSEA AND EMESIS X1. PER PATIENT REQUEST, ADMINISTERED ZOFRAN 4 MG/2 ML IVP Q6H PRN. WILL CONTINUE TO MONITOR. Addendum: 06/26/21 at 1900 by KRISSY PAREDES RN INCORRECT TIME. ADMINISTERED AT 1839.
--- NOTE | 2021-06-26 07:30 | NUR ---
NARCOTICS INVESTIGATOR OPENING NOTE RECEIVED PT AWAKE IN BED, A/O X4. PT STABLE ON ROOM AIR, NO SOB OR S/S OF RESPIRATORY DISTRESS. EXTERNAL AVIONICS MECHANIC READING ST @ 100. IV ACCESS NOTED IN RIGHT UPPER ARM MIDLINE AND LEFT UPPER ARM PICC LINE, INTACT AND PATENT. SAFETY PRECAUTIONS MAINTAINED. BED IN LOWEST LOCKED POSITION, SIDE RAILS UP X2, HOB ELEVATED, AND CALL LIGHT AND TABLE WITHIN REACH. WILL CONTINUE TO MONITOR.
[2021-06-26 09:13] LABS: CALCIUM, SERUM 8.4 mg/dL (8.5-10.1); CREATININE 0.9 mg/dL (0.6-1.3); POTASSIUM 4.5 mmol/L (3.5-5.1)
[2021-06-26 09:42] LABS: BASOPHILS # (AUTO) 0.1 K/uL (0.0-0.2); BASOPHILS % (AUTO) 0.6 % (0.0-2.0); EOSINOPHILS % (AUTO) 0.3 % (0.0-6.0); HEMATOCRIT 26 % (39-51); HEMOGLOBIN 8.7 g/dL (13.5-17.5); LYMPHOCYTES # (AUTO) 0.7 K/uL (0.8-4.8); LYMPHOCYTES % (AUTO) 6.1 % (20.0-44.0); MEAN CORPUSCULAR HGB CONC 33 g/dl (31.0-36.0); MEAN CORPUSCULAR VOLUME 101 fL (80-96); MONOCYTES # (AUTO) 1.5 K/uL (0.1-1.30); MONOCYTES % (AUTO) 13.6 % (2.0-12.0); NEUTROPHILS # (AUTO) 8.7 K/uL (1.8-8.9); NEUTROPHILS % (AUTO) 79.4 % (43.0-81.0); PLATELET COUNT (AUTO) 289 K/uL (150-450); RED BLOOD CELL COUNT(AUTO) 2.57 MIL/uL (4.5-6.0); WHITE BLOOD COUNT (AUTO) 10.9 K/uL (4.3-11.0)
--- NOTE | 2021-06-26 10:29 | NUR ---
US GUIDED PARACENTESIS WILL BE DONE TOMORROW DUE TO NO LABS DRAWN TODAY PER FANTASMA SCHAEFFER. INFORMED ALEC VARELA TO DRAW LABS TODAY SO IT IS PREPARED FOR THE PROCEDURE TOMORROW.
--- NOTE | 2021-06-26 12:14 | NUR ---
RN NOTE RECEIVED ORDERS FROM DR FERRER TO ADMINISTER MUCINEX 600MG PO Q12H PRN FOR COUGH. ORDERS READ BACK, ENTERED, AND CARRIED OUT.
[2021-06-26] MEDS ORDERED: GUAIFENESIN LA 600 MG TABLET.SA PO PRN (12:30)
[2021-06-26 16:00] VITALS: BP 125/80
[2021-06-26] MEDS: ONDANSETRON HCL/PF 4 MG/2 ML VIAL IVP PRN (18:39)
--- NOTE | 2021-06-26 19:00 | NUR ---
RES HABILITATION ASSISTANT CLOSING NOTE PT IS AWAKE IN BED. A/O X4. PT STABLE ON ROOM AIR WITH NO SOB OR S/S OF RESPIRATORY DISTRESS NOTED. PT ON EXTERNAL SR. OPERATIONS MANAGER READING ST 119 BPM. PT HAS NO C/O PAIN OR DISCOMFORT AT THIS TIME. IV ACCESS IN AZAR MIDLINE AND DEON PICC LINE, INTACT AND PATENT. ALL NEEDS HAVE BEEN MET. SAFETY PRECAUTIONS MAINTAINED AT ALL TIMES. BED IN LOWEST LOCKED POSITION, HOB ELEVATED, SIDE RAILS UP X2. CALL LIGHT AND TABLE WITHIN REACH. WILL ENDORSE TO ONCOMING NURSE FOR ERNESTO.
--- NOTE | 2021-06-26 19:35 | NUR ---
ECONOMICS LECTURER OPENING NOTES RECEIVED PATIENT AWAKE LAYING IN BED. A/O X3-4. PATIENT WITH REGULAR AND UNLABORED BREATHING ON ROOM AIR, TOLERATED WELL. NO SIGNS AND SYMPTOMS OF DISTRESS NOTED. IV ACCESS DEON PICCLINE SL AND AZAR MIDLINE SL. ACCESS PATENT AND INTACT. SAFETY PRECAUTIONS ENFORCED WITH BED LOCKED AND AT LOWEST POSITION SIDERAILS UP X2. CALL LIGHT WITHIN REACH AT ALL TIMES. WILL CONTINUE TO MONITOR PATIENT.
[2021-06-26 20:00] VITALS: BP_SYST 113; BP_SYST 123; BP_DIAS 63; BP_DIAS 81
[2021-06-26 22:00] VITALS: BP 113/81
[2021-06-27] VITALS: BP 114/79
[2021-06-27 04:00] VITALS: BP 113/67
--- NOTE | 2021-06-27 07:00 | NUR ---
DATABASE MARKETING ANALYST CLOSING NOTES PATIENT AWAKE LAYING IN BED. A/O X3-4. PATIENT WITH REGULAR AND UNLABORED BREATHING ON ROOM AIR, TOLERATED WELL. NO SIGNS AND SYMPTOMS OF DISTRESS NOTED. IV ACCESS DEON PICCLINE SL AND AZAR MIDLINE SL. ACCESS PATENT AND INTACT. SAFETY PRECAUTIONS ENFORCED WITH BED LOCKED AND AT LOWEST POSITION SIDERAILS UP X2. CALL LIGHT WITHIN REACH AT ALL TIMES. WILL ENDORSE CONTINUITY OF CARE TO DAY SHIFT NURSE.
[2021-06-27 07:30] LABS: CALCIUM, SERUM 7.8 mg/dL (8.5-10.1); CREATININE 1.4 mg/dL (0.6-1.3); POTASSIUM 5.6 mmol/L (3.5-5.1)
[2021-06-27 08:00] VITALS: BP 82/55
--- NOTE | 2021-06-27 08:06 | NUR ---
TELE/RN OPENING NOTES RECEIVED PATIENT AWAKE LAYING IN BED. A/O X3-4. REGULAR AND UNLABORED BREATHING ON ROOM AIR, TOLERATED WELL. NO SIGNS AND SYMPTOMS OF DISTRESS NOTED. IV ACCESS DEON PICC LINE SL AND AZAR MIDLINE SL. ACCESS PATENT AND INTACT. SAFETY PRECAUTIONS ENFORCED WITH BED LOCKED AND AT LOWEST POSITION SIDE RAILS UP X2. CALL LIGHT WITHIN REACH AT ALL TIMES. WILL CONTINUE TO MONITOR.
[2021-06-27 10:21] LABS: BASOPHILS # (AUTO) 0.1 K/uL (0.0-0.2); BASOPHILS % (AUTO) 0.3 % (0.0-2.0); EOSINOPHILS % (AUTO) 0.2 % (0.0-6.0); LYMPHOCYTES # (AUTO) 1.1 K/uL (0.8-4.8); LYMPHOCYTES % (AUTO) 6.1 % (20.0-44.0); MEAN CORPUSCULAR HGB CONC 30 g/dl (31.0-36.0); MEAN CORPUSCULAR VOLUME 113 fL (80-96); MONOCYTES % (AUTO) 11.4 % (2.0-12.0); NEUTROPHILS # (AUTO) 14.5 K/uL (1.8-8.9); PLATELET COUNT (AUTO) 373 K/uL (150-450); WHITE BLOOD COUNT (AUTO) 17.7 K/uL (4.3-11.0)
[2021-06-27 10:22] LABS: RED BLOOD CELL COUNT(AUTO) 1.69 MIL/uL (4.5-6.0)
[2021-06-27 10:25] LABS: HEMATOCRIT 19 % (39-51); HEMOGLOBIN 5.6 g/dL (13.5-17.5)
--- NOTE | 2021-06-27 10:30 | NUR ---
TELE/RN NOTES- [facility] KHAN PT NOTIFIED CHARGE NURSE TERRELL THAT PATIENT IS HAVING SOB. CHARGE NURSE TERRELL ASSESSED PATIENT, PATIENT IS UNRESPONSIVE WITH DARK TARRY BLOOD COMING OUT OF THE PATIENT'S MOUTH. 10:13AM RN TERRELL CALLED [facility] WILKES AND CPR INITIATED. PATIENT ATTACHED TO [facility] BAG AND DEFIBRILLATOR MONITOR. MD, AND CRITICAL CARE TEAM AT BEDSIDE. FIRST EPI ORDERED @10:15 AM, SODIUM BICARB AND 3RD EPI GIVEN @10:21, RESULT SHOWS ASYSTOLE, NO PALPABLE PULSE AND NO BREATHING. LAST EPI GIVEN @10:23, SHOWS ASYSTOLE, NO PALPABLE PULSE, NO BREATHING. TIME OF CALLED @10:23AM BY DR. NYE. FAMILY NOTIFIED BY DR. FERRER. [facility] CALLED WITH TICKET #[id number]. WILL REMOVE IV ACCESS AND COCHRAN CATHETER AND WILL PERFORM POST MORTEM CARE.
[2021-06-27] MEDS ORDERED: SODIUM BICARBONATE SYR 50 MEQ/50 ML DISP.SYRIN ONE (10:35)
[2021-06-27] MEDS ORDERED: EPINEPHRINE (1:10,000) SYRINGE 1 MG/10 ML DISP.SYRIN ONE (10:35)
[2021-06-27 13:53] LABS: BAND % (MANUAL) 6 % (0.0-5.0); LYMPHOCYTES % (MANUAL) 7 % (16-48); MONOCYTES % (MANUAL) 11 % (0-11.0); NEUTROPHILS % (MANUAL) 76 (42-76)
== END 2021-06-27 10:23 | DRG 432 ==
LOC: ER 04:11 → TRANSITION 05:07 → TELE1 05:33 → ICU 10:33 → TELE 06-22 17:38
PROVIDERS: ADMIT Internal Medicine; ATTEND Family Medicine
PROC: 06L28CZ Occlusion of Gastric Vein with Extraluminal Device, Via Natural or Artificial Opening Endoscopic (ICD-10-PCS; principal; 2021-06-17)
PROC: 5A1945Z Respiratory Ventilation, 24-96 Consecutive Hours (ICD-10-PCS; 2021-06-17)
PROC: 0BH17EZ Insertion of Endotracheal Airway into Trachea, Via Natural or Artificial Opening (ICD-10-PCS; 2021-06-17)
PROC: 30233N1 Transfusion of Nonautologous Red Blood Cells into Peripheral Vein, Percutaneous Approach (ICD-10-PCS; 2021-06-17)
PROC: 05HC33Z Insertion of Infusion Device into Left Basilic Vein, Percutaneous Approach (ICD-10-PCS; 2021-06-17)
PROC: 02HV33Z Insertion of Infusion Device into Superior Vena Cava, Percutaneous Approach (ICD-10-PCS; 2021-06-19)
PROC: B548ZZA Ultrasonography of Superior Vena Cava, Guidance (ICD-10-PCS; 2021-06-19)
PROC: 5A2204Z Restoration of Cardiac Rhythm, Single (ICD-10-PCS; 2021-06-27)
PROC: 0BH17EZ Insertion of Endotracheal Airway into Trachea, Via Natural or Artificial Opening (ICD-10-PCS; 2021-06-27)
DX: K70.11 Alcoholic hepatitis with ascites (principal); N17.0 Acute kidney failure with tubular necrosis; J96.01 Acute respiratory failure with hypoxia; I85.11 Secondary esophageal varices with bleeding; E87.1 Hypo-osmolality and hyponatremia; E87.2 Acidosis; D68.9 Coagulation defect, unspecified; I10 Essential (primary) hypertension; D50.0 Iron deficiency anemia secondary to blood loss (chronic); E86.1 Hypovolemia; F10.20 Alcohol dependence, uncomplicated; Z20.822 Contact with and (suspected) exposure to COVID-19; R57.1 Hypovolemic shock; Z79.899 Other long term (current) drug therapy; Y90.9 Presence of alcohol in blood, level not specified; E87.6 Hypokalemia; E87.5 Hyperkalemia
CPT/HCPCS: 31720; 36410; 36415; 36569; 36600; 70450-TC; 71045-TC; 74018; 80048-TC; 80076-TC; 83690-TC; 83735-TC; 84100-TC; 84132-TC; 85025-TC; 85610-TC; 85730-TC; 86850-TC; 87081-TC; 94003-TC; 94760-TC; 94799-TC; 97110-TC; 97116-TC; 97530-TC; C9113; G0378; J0171; J0330; J0696; J2250; J2354; J2405; J2704; J3475; J3480; J3490; J7030; J7040; J7050; J7060; P9016